=== PATIENT | male | born 2005 | race Caucasian/White ===

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

== ENCOUNTER 2025-05-23 18:27 | Emergency (ER) | payer OTHER ==
[~2025-05-23] VITALS: Ht 180.3 cm; Wt 81.4 kg
[~2025-05-23 18:27] MED LIST changes: -DOXY-323 PO; +DOXY-441 PO; +IBUP-1022 PO; +METH-1164 PO
[2025-05-23 20:06] LABS: KETONE, URINE AUTO RFX NEGATIVE (NEGATIVE); LEUKOCYTE ESTERASE UR AUTO RFX NEGATIVE (NEGATIVE); MUCUS, URINE RFX SMALL (NEGATIVE); NITRITE, URINE AUTO RFX NEGATIVE (NEGATIVE); RBC, URINE AUTO RFX 0 /HPF (0-3); SQUAM EPITHELIAL CELL UR AURFX 0 /HPF (0-6); WBC, URINE AUTO RFX 1 /HPF (0-3)
[2025-05-23 20:06] LABS: BASO # 0.0 10^3/uL (0.0-0.2); BASO % 0.5 % (0.0-1.0); EOS # 0.4 10^3/uL (0.0-0.5); EOS % 5.6 % (0.0-3.0); LYMPH # 1.6 10^3/uL (1.5-5.0); LYMPH % 21.0 % (24.0-44.0); MONO # 0.7 10^3/uL (0.0-0.8); MONO % 9.5 % (2.0-8.0); NEUTROPHILS # 4.7 10^3/uL (1.5-8.5); NEUTROPHILS % 63.3 % (36.0-66.0); PLATELET COUNT, AUTOMATED 283 10^3/uL (150-450)
[2025-05-23] MEDS: KETOROLAC 30 MG/ML 1 ML VIAL IV ONE (20:25)
[2025-05-23 20:31] LABS: ALT/SGPT 13 U/L (7.0-40); AST/SGOT 17 U/L (<34); CALCIUM LEVEL 9.0 MG/DL (8.5-10.1); CARBON DIOXIDE LEVEL 28 MMOL/L (20-31); CHLORIDE LEVEL 104 MMOL/L (98-107); CREATININE FOR GFR 1.09 MG/DL (0.70-1.30); GLOMERULAR FILTRATION RATE > 90.0 (>60); POTASSIUM SERUM 4.7 MMOL/L (3.5-5.1); SODIUM LEVEL 143 MMOL/L (136-145)
[2025-05-23] MEDS: NS (Normal Saline) 0.9% 1,000 ML IV ONE (20:40)
[2025-05-23] MEDS ORDERED: ISOVUE-370 76% 100 ML VIAL As Ordered ONE (20:47)
[2025-05-23 22:27] VITALS: BP 137/79; TEMP 97.2; O2SAT 100
[2025-05-23 22:29] LABS: Trichomonas vaginalis (AMP) NOT DETECTED (NEGATIVE)
[2025-05-23 22:52] LABS: GC DNA AMPLIFICATION NEGATIVE (NEGATIVE)
== END 2025-05-23 22:28 | disposition home or self-care (01) ==
LOC: M ED 18:27
DX: R10.9 Unspecified abdominal pain (principal); F17.290 Nicotine dependence, other tobacco product, uncomplicated
CPT/HCPCS: 74177; 80048; 80076; 81001; 83690; 85025; 87661; 87810; 87850; 96374; 99284; J1885; Q9967

== ENCOUNTER 2025-06-20 12:03 | Emergency (ER) | payer OTHER ==
[~2025-06-20] VITALS: Ht 180.3 cm; Wt 80.6 kg
[~2025-06-20 12:03] MED LIST changes: -IBUP-1022 PO; +IBUP600T42 PO
[2025-06-20] MEDS: TETRACAINE 0.5% OPHTH SOLN 4ML OS ONE (15:10)
[2025-06-20] MEDS: FLUORESCEIN OPHTH 1 MG STRIP OS ONE (15:10)
[2025-06-20] MEDS: ERYTHROMYCIN OPHTH OINT OS ONE (16:50)
[2025-06-20] MEDS ORDERED: ERYT5OIN25 OP (16:52)
[2025-06-20 17:04] VITALS: BP 122/62; TEMP 97.9; O2SAT 100
== END 2025-06-20 17:05 | disposition home or self-care (01) ==
LOC: M ED 12:03
DX: S00.12XA Contusion of left eyelid and periocular area, initial encounter (principal); H11.32 Conjunctival hemorrhage, left eye; Y92.019 Unspecified place in single-family (private) house as the place of occurrence of the external cause; Y93.9 Activity, unspecified; Y99.9 Unspecified external cause status; W01.198A Fall on same level from slipping, tripping and stumbling with subsequent striking against other object, initial encounter; F17.290 Nicotine dependence, other tobacco product, uncomplicated; Z79.2 Long term (current) use of antibiotics

== ENCOUNTER 2025-08-08 09:16 | Emergency (ER) | payer OTHER ==
[~2025-08-08] VITALS: Ht 180.3 cm; Wt 81.6 kg
[~2025-08-08 09:16] MED LIST changes: +ERYT5OIN25 OP
[2025-08-08] MEDS ORDERED: IBUP-1114 PO (09:26)
[2025-08-08 10:30] VITALS: BP 138/68; TEMP 97.7; O2SAT 99
== END 2025-08-08 10:39 | disposition home or self-care (01) ==
LOC: M ED 09:16
DX: S83.91XA Sprain of unspecified site of right knee, initial encounter (principal); Y92.9 Unspecified place or not applicable; Y93.9 Activity, unspecified; Y99.0 Civilian activity done for income or pay; W17.0XXA Fall into well, initial encounter; Z79.1 Long term (current) use of non-steroidal anti-inflammatories (NSAID)